=== PATIENT | female | born 1975 | race Two or more races ===

== ENCOUNTER 2018-06-01 13:08 | Emergency (ER) | payer BC ==
[~2018-06-01] VITALS: Ht 162.6 cm; Wt 55.0 kg
[2018-06-01 13:35] VITALS: BP 110/75; PULSE 85; RESP 18; Ht 162.6 cm; Wt 55.0 kg
[2018-06-01] MEDS ORDERED: IBUPROFEN LIQUID (PED) 20 MG/ML CUP PO STA (17:04)
[2018-06-01] MEDS ORDERED: ERYTHROMYCIN 1 GM OPH OINT BOTH EYES ONE (17:30)
[2018-06-01] MEDS ORDERED: ACETAMINOPHEN 160 MG/5ML CUP PO PRN (17:30)
[2018-06-01] MEDS ORDERED: DIPHENHYDRAMINE 2.5 MG/ML 5ML CUP PO ONE (17:30)
[2018-06-01] MEDS ORDERED: GUAI118L22 PO (18:40)
[2018-06-01] MEDS ORDERED: CETI10TA19 PO (18:40)
[2018-06-01] MEDS ORDERED: BENZ-6 PO (18:40)
--- NOTE | 2018-06-02 16:37 | ERD ---
ER Documentation Chief Complaint Chief Complaint COUGH WITH FEVER/SORE THROAT X 1 WEEK HPI 42-year-old female coming in today with Chief Complaint: Cold symptoms History of Present Illness: Patient coming in today with complaint of cold symptoms for 1 week. Associated symptoms include nonproductive cough, intermit tent fever, sore throat, runny nose. Patient reports diagnosis of influenza 1 month ago and cough has persisted afterwards. Patient reports taking azithromycin prescribed, and no relief of symptoms. Patient concerned due to her condition of being immunosuppressed with rheumatoid arthritis medications, that pulmonary she does not want to take any chances that she wanted to come get checked out. Denies use of medications at home for current symptoms. Review of systems: All systems were reviewed and are negative except for what is indicated in the history of present illness. Past Medical History: Rheumatoid arthritis Social History: Patient denies tobacco, alcohol, elicit drug use Medications: Reviewed as documented Nursing Notes; patient reports taking medications for rheumatoid arthritis Allergies: Bactrim Social Concerns: Denies ROS All systems reviewed and are negative except as per history of present illness. Medications Home Meds Active Scripts Cetirizine Hcl* (Cetirizine Hcl*) 10 Mg Tablet, 10 MG PO DAILY for allergies/throat irriation/cou, #30 TAB Prov:MONET YOUNG NP 06/01/18 Benzonatate* (Tessalon Perle*) 100 Mg Capsule, 100 MG PO Q8H PRN for COUGH, #24 CAP Prov:MONET YOUNG V [facility] 06/01/18 Guaifenesin/Codeine Phosphate (CHERATUSSIN AC SYRUP) 118 Ml Liquid, 10 ML PO QHS PRN for COUGH, #118 ML Prov:MONET YOUNG NP 06/01/18 Allergies Allergies: Coded Allergies: sulfamethoxazole (Verified Allergy, Unknown, 06/02/18) trimethoprim (Verified Allergy, Unknown, 06/02/18) PMhx/Soc History of Surgery: Yes (R bunion removal) Anesthesia Reaction: No Hx Miscellaneous Medical Probl: Yes (Rheumatoid arthritis) Hx Alcohol Use: No Hx Substance Use: No Hx Tobacco Use: No Smoking Status: Never smoker FmHx Family History: coronary disease Physical Exam Vitals Vital Signs Date Temp Pulse Resp B/P (MAP) Pulse Ox O2 O2 Flow FiO2 Time Delivery Rate 06/01/18 98.6 85 18 110/75 98 13:35 (87) Physical Exam Const: No acute distress Head: Atraumatic Eyes: Normal Conjunctiva ENT: Normal External Ears, Nose and Mouth. Neck: Full range of motion. No meningismus. Resp: Clear to auscultation bilaterally Cardio: Regular rate and rhythm, no murmurs Abd: Soft, non tender, non distended. Normal bowel sounds Skin: No petechiae or rashes Back: No midline or flank tenderness Ext: No cyanosis, or edema Neur: Awake and alert Psych: Normal Mood and Affect Results 24 hrs Laboratory Tests Test 06/01/18 17:24 POC Beta HCG, Qualitative NEGATIVE Current Medications Medications Dose Sig/Deep Start Time Status Last (Trade) Ordered Route PRN Stop Time Admin Dose Reason Admin 1 applic ONCE ONCE 06/01/18 DC Erythromycin BOTH EYES 17:30 06/01/18 17:30 (Erythromycin Oph Oint) 12.5 mg ONCE ONCE 06/01/18 DC Diphenhydrami PO 17:30 ne HCl 06/01/18 17:30 (Benadryl Liquid Cup) Ibuprofen 550 mg ONCE STAT 06/01/18 DC (Motrin PO 17:04 Liquid 06/01/18 17:16 (Ped)) 550 mg Q4H PRN 06/01/18 DC Acetaminophen PO pain 17:30 (Tylenol 06/01/18 17:30 Liquid (Ped)) Procedures/MDM ED course includes a thorough examination and history. ED course includes laboratory testing; urine for chest x-ray. ED course includes imaging; chest x-ray to rule out pneumonia or any other pathological findings. Low suspicion for life-threatening medical emergency or cardiopulmonary emergency that requires hospitalization. Otherwise healthy patient presenting with constellation of symptoms likely representing uncomplicated bronchitis as characterized by history, physical exam findings radiologic/lab findings. Chest x-ray unremarkable. Urine negative No respiratory distress, otherwise relatively well appearing and nontoxic. Patient educated on diagnoses, prescriptions (Cheratussin for nighttime cough, Tessalon Perles for daytime cough, cetirizine for allergy-like symptoms), follow-up care, return precautions. Strict return precautions given for worse haylie condition; questions answered discharge. Disposition for discharge with followup in 2 days with PCP/clinic for reevaluation of symptoms and further workup if indicated. Departure Diagnosis: Primary Impression: Bronchitis Additional Impression: Allergic rhinitis Allergic rhinitis trigger: unspecified Allergic rhinitis seasonality: unspecified Qualified Codes: J30.9 - Allergic rhinitis, unspecified Condition: Stable Patient Instructions: Bronchitis With Wheezing (Adult) Referrals: [facility] YOU HAVE RECEIVED A MEDICAL SCREENING EXAM AND THE RESULTS INDICATE THAT YOU DO NOT HAVE A CONDITION THAT REQUIRES URGENT TREATMENT IN THE EMERGENCY DEPARTMENT. FURTHER EVALUATION AND TREATMENT OF YOUR CONDITION CAN WAIT UNTIL YOU ARE SEEN IN YOUR DOCTORS OFFICE WITHIN THE NEXT 1-2 DAYS. IT IS YOUR RESPONSIBILITY TO MAKE AN APPOINTMENT FOR FOLOW-UP CARE. IF YOU HAVE A PRIMARY DOCTOR --you should call your primary doctor and schedule an appointment IF YOU DO NOT HAVE A PRIMARY DOCTOR YOU CAN CALL OUR PHYSICIAN REFERRAL HOTLINE AT IF YOU CAN NOT AFFORD TO SEE A PHYSICIAN YOU CAN CHOSE FROM THE FOLLOWING [facility] [address] [facility]. [facility] [address] [facility] [address] [facility] [address] [facility] [facility] [address] [facility] [facility] [address] [facility]. [facility] YOU HAVE RECEIVED A MEDICAL SCREENING EXAM AND THE RESULTS INDICATE THAT YOU DO NOT HAVE A CONDITION THAT REQUIRES URGENT TREATMENT IN THE EMERGENCY DEPARTMENT. FURTHER EVALUATION AND TREATMENT OF YOUR CONDITION CAN WAIT UNTIL YOU ARE SEEN IN YOUR DOCTORS OFFICE WITHIN THE NEXT 1-2 DAYS. IT IS YOUR RESPONSIBILITY TO MAKE AN APPOINTMENT FOR FOLOW-UP CARE. IF YOU HAVE A PRIMARY DOCTOR --you should call your primary doctor and schedule and appointment IF YOU DO NOT HAVE A PRIMARY DOCTOR YOU CAN CALL OUR PHYSICIAN REFERRAL HOTLINE AT . IF YOU CAN NOT AFFORD TO SEE A PHYSICIAN YOU CAN CHOSE FROM THE FOLLOWING [facility]: [facility] [address] [place] [address] [facility] [address] [place] [address] [facility] [address] [place] [address] Additional Instructions: Call your primary care doctor TOMORROW for an appointment during the next 2-3 days.See the doctor sooner or return here if your condition worsens before your appointment time. Although your chest x-ray today did not have any abnormal findings (no pneumonia, etc), it is important to follow-up with your primary care doctor this week for further care and evaluation of symptoms. Cheratussin cough syrup includes codeine, preferably take this medication at night for cough, it may make you sleepy. May take up to every 8-12 hours if needed, if you do not have to work or operate heavy machinery. Tessalon Perles will not make you sleepy. You can take the time every 8 hours. Take cetirizine every night this will help with allergy like symptoms including sore throat and cough . MONET YOUNG NP Jun 02, 2018 16:37
== END 2018-06-01 19:01 | disposition home or self-care (01) ==
LOC: FTE 13:08
DX: J40 Bronchitis, not specified as acute or chronic (principal); J30.9 Allergic rhinitis, unspecified
CPT/HCPCS: 71046; 81025